=== PATIENT | male | born 1955 | race African-American/Black ===

== ENCOUNTER → 2018-03-26 | Outpatient (CLI) | payer BC, OTHER ==
[~2018-03-26] MED LIST: AZITHROMYCIN 2250 MG PO; CEFDINIR300 MG PO; CEFUROXIME500 MG PO; CVS BUFFERED A325 MG PO; HYTRIN 2MG CAPSU2 MG PO; LOTREL 5-10 MG1 EACH PO; METOPROLOL SUCC25 M1 PO; NICOTINE TRANSD21 M1 TRANSDERM; OMEPRAZOLE20 M2 PO; PREDNISONE 10 M10 MG PO; PREDNISONE50 MG PO; PROAIR HFA8.5 GM INH; SIMVASTATIN20 MG PO; ZOFRAN ODT4 MG PO
== END ==
LOC: RAD 13:04
DX: G44.85 Primary stabbing headache (principal); I10 Essential (primary) hypertension; R05 Cough; Z72.0 Tobacco use

== ENCOUNTER → 2018-06-17 | Outpatient (CLI) | payer BC, OTHER | LOC: RAD 16:09 | DX: R05 Cough (principal); J44.9 Chronic obstructive pulmonary disease, unspecified ==

== ENCOUNTER → 2018-09-19 | Outpatient (CLI) | payer BC, OTHER | LOC: RAD 12:56 | DX: R04.2 Hemoptysis (principal); R05 Cough ==

== ENCOUNTER → 2020-01-05 | Outpatient (CLI) | payer BC, OTHER | LOC: RAD 15:25 | PROVIDERS: ATTEND Family Medicine | DX: M47.817 Spondylosis without myelopathy or radiculopathy, lumbosacral region (principal); M25.78 Osteophyte, vertebrae; M79.89 Other specified soft tissue disorders ==

== ENCOUNTER → 2020-01-08 | Outpatient (CLI) | payer BC, OTHER | LOC: ULTRA 16:17 | PROVIDERS: ATTEND Family Medicine | DX: I65.29 Occlusion and stenosis of unspecified carotid artery (principal) ==

== ENCOUNTER → 2020-02-20 | Outpatient (CLI) | payer BC, OTHER | LOC: SJCVCIMAG 08:25 | PROVIDERS: ATTEND Internal Medicine | DX: I07.1 Rheumatic tricuspid insufficiency (principal); R00.0 Tachycardia, unspecified; I49.3 Ventricular premature depolarization; I10 Essential (primary) hypertension; F17.200 Nicotine dependence, unspecified, uncomplicated ==

== ENCOUNTER → 2020-06-22 | Outpatient (CLI) | payer BC, OTHER | LOC: LAB 08:58 | PROVIDERS: ATTEND Family Medicine | DX: J02.9 Acute pharyngitis, unspecified (principal); R05 Cough; R06.02 Shortness of breath; Z20.822 Contact with and (suspected) exposure to COVID-19 ==

== ENCOUNTER 2021-01-27 16:49 | Emergency (ER) | payer BC, OTHER ==
[~2021-01-27] VITALS: Ht 165.1 cm; Wt 72.6 kg
[2021-01-27 16:51] VITALS: BP 141/84
[2021-01-27] MEDS ORDERED: EC-NAPROSYN375 MG PO (17:15)
[2021-01-27] MEDS ORDERED: APAP W/CODEINE1 TA2 PO (17:15)
== END 2021-01-27 17:40 | disposition home or self-care (01) ==
LOC: ER 16:49
DX: M54.5 Low back pain (principal); I10 Essential (primary) hypertension; K21.9 Gastro-esophageal reflux disease without esophagitis; E78.00 Pure hypercholesterolemia, unspecified; J44.9 Chronic obstructive pulmonary disease, unspecified; F17.210 Nicotine dependence, cigarettes, uncomplicated; Z79.82 Long term (current) use of aspirin; Z79.51 Long term (current) use of inhaled steroids; Z79.899 Other long term (current) drug therapy

== ENCOUNTER 2021-02-06 09:03 | Emergency (ER) | payer BC, OTHER ==
[~2021-02-06] VITALS: Ht 165.1 cm; Wt 72.6 kg
[~2021-02-06 09:03] MED LIST changes: +APAP W/CODEINE1 TA2 PO; +EC-NAPROSYN375 MG PO
[2021-02-06] MEDS ORDERED: APAP W/CODEINE1 TA2 PO (09:56)
[2021-02-06] MEDS ORDERED: NAPROSYN500 MG PO (09:56)
[2021-02-06] MEDS ORDERED: FLEXERIL PO (09:56)
[2021-02-06 10:05] VITALS: BP 127/94
== END 2021-02-06 10:05 ==
LOC: ER 09:03
DX: M54.5 Low back pain (principal); R20.2 Paresthesia of skin; I10 Essential (primary) hypertension; K21.9 Gastro-esophageal reflux disease without esophagitis; E78.00 Pure hypercholesterolemia, unspecified; Z79.899 Other long term (current) drug therapy

== ENCOUNTER 2021-03-12 21:03 | Emergency (ER) | payer BC, OTHER ==
[~2021-03-12] VITALS: Ht 165.1 cm; Wt 72.6 kg
[~2021-03-12 21:03] MED LIST changes: +FLEXERIL PO; +NAPROSYN500 MG PO
[2021-03-12 21:40] LABS: ABSOLUTE NEUTROPHILS 11.1 thou/uL (1.4-8.2); BASOPHILS 0.3 % (0.0-2.0); EOSINOPHILS 0.1 % (0.0-3.0); HEMATOCRIT 39.5 % (42.0-52.0); LYMPHOCYTES 7.5 % (24.0-44.0); MCH 30.9 pg (26.0-34.0); MCHC 32.8 g/dL (28.0-37.0); MCV 94.4 fL (80.0-100.0); MONOCYTES 2.8 % (1.0-8.0); PLATELET COUNT 240 thou/uL (150-400); POLYS 89.3 % (36.0-66.0); RBC 4.19 mil/uL (4.50-6.00); RDW 14.4 % (10.5-14.5); WBC 12.4 thou/uL (4.0-11.0)
[2021-03-12 21:52] LABS: CALCIUM 8.9 mg/dL (8.5-10.1); CREATININE 1.1 mg/dL (0.7-1.3)
[2021-03-12 21:54] LABS: POTASSIUM 4.1 mmol/L (3.5-5.1)
[2021-03-13] MEDS ORDERED: AUGMENTIN 875-1 EACH PO (00:21)
[2021-03-13 01:19] VITALS: BP 117/71
--- NOTE | 2021-03-14 07:27 | EKG ---
[address] [address] ELECTROCARDIOGRAM REPORT Name: THANG MICHEL [facility] [id number] Admission: 03/12/21 Attend Phys: Discharge: 03/13/21 Date of : 59 Report #: [id number] [facility] ED Test Date: 2021-03-12 Test Time: 22:30:11 Pat Name: THANG MICHEL Department: Room: Gender: Eeo Officer: MARY RODRIGUEZ : 1955 Requested By: Krishan Patel Order Number: [id number] MD: Piotr Lozada Measurements Intervals [place] Rate: 117 P: 68 VT: 151 QRS: 67 QRSD: 77 T: 61 QT: 312 QTc: 436 Interpretive Statements Sinus tachycardia Borderline repolarization abnormality Compared to ECG 04/17/2016 18:33:11 Sinus rhythm no longer present Electronically Signed On 03-14-2021 7:26:53 CDT by Piotr Lozada [email or web address] <ELECTRONICALLY SIGNED> By: Piotr Lozada MD, [facility] 03/14/21 0726 [id number] Piotr Lozada MD, FACC /EPI
== END 2021-03-13 01:31 | disposition home or self-care (01) ==
LOC: ER 21:03
PROVIDERS: Emergency Medicine
DX: J18.9 Pneumonia, unspecified organism (principal); Z20.822 Contact with and (suspected) exposure to COVID-19; I10 Essential (primary) hypertension; K21.9 Gastro-esophageal reflux disease without esophagitis; F17.210 Nicotine dependence, cigarettes, uncomplicated; E78.00 Pure hypercholesterolemia, unspecified; Z79.51 Long term (current) use of inhaled steroids; Z79.82 Long term (current) use of aspirin; Z79.891 Long term (current) use of opiate analgesic; Z79.1 Long term (current) use of non-steroidal anti-inflammatories (NSAID); Z79.899 Other long term (current) drug therapy

== ENCOUNTER 2021-03-14 10:34 | Emergency (ER) | payer BC, OTHER ==
[~2021-03-14] VITALS: Ht 165.1 cm; Wt 72.6 kg
[~2021-03-14 10:34] MED LIST changes: +AUGMENTIN 875-1 EACH PO
[2021-03-14 11:55] LABS: ABSOLUTE NEUTROPHILS 3.7 thou/uL (1.4-8.2); BASOPHILS 0.4 % (0.0-2.0); EOSINOPHILS 0.4 % (0.0-3.0); HEMATOCRIT 39.2 % (42.0-52.0); HEMOGLOBIN 12.8 gm/dL (14.0-18.0); LYMPHOCYTES 23.9 % (24.0-44.0); MCH 30.9 pg (26.0-34.0); MCHC 32.7 g/dL (28.0-37.0); MCV 94.7 fL (80.0-100.0); MONOCYTES 5.8 % (1.0-8.0); PLATELET COUNT 214 thou/uL (150-400); POLYS 69.5 % (36.0-66.0); RBC 4.14 mil/uL (4.50-6.00); RDW 14.3 % (10.5-14.5); WBC 5.3 thou/uL (4.0-11.0)
[2021-03-14 12:09] LABS: ANION GAP 10 mmol/L (7-16); BUN 14 mg/dL (7-18); CALCIUM 9.3 mg/dL (8.5-10.1); CHLORIDE 104 mmol/L (98-107); CO2 26 mmol/L (21-32); CREATININE 1.1 mg/dL (0.7-1.3); GLUCOSE 100 mg/dL (74-106); POTASSIUM 3.6 mmol/L (3.5-5.1); SODIUM 140 mmol/L (136-145)
[2021-03-14 14:14] VITALS: BP 128/87
== END 2021-03-14 14:20 | disposition home or self-care (01) ==
LOC: ER 10:34
PROVIDERS: Student in an Organized Health Care Education/Training Program
DX: J18.8 Other pneumonia, unspecified organism (principal); I10 Essential (primary) hypertension; K21.9 Gastro-esophageal reflux disease without esophagitis; E78.00 Pure hypercholesterolemia, unspecified; F17.210 Nicotine dependence, cigarettes, uncomplicated; Z79.51 Long term (current) use of inhaled steroids; Z79.899 Other long term (current) drug therapy; Z79.1 Long term (current) use of non-steroidal anti-inflammatories (NSAID)